=== PATIENT | male | born 1990 | race Caucasian/White ===

== ENCOUNTER 2017-10-19 13:38 | Emergency (ER) | payer OTHER ==
[~2017-10-19] VITALS: Ht 157.5 cm; Wt 87.5 kg
[2017-10-19 13:46] VITALS: Ht 157.5 cm; Wt 87.5 kg
[2017-10-19 16:59] VITALS: BP 133/58
== END 2017-10-19 16:59 | disposition home or self-care (01) ==
LOC: ED 13:38
DX: S80.01XA Contusion of right knee, initial encounter (principal); F31.9 Bipolar disorder, unspecified; F79 Unspecified intellectual disabilities; E66.9 Obesity, unspecified; Z68.35 Body mass index [BMI] 35.0-35.9, adult; W17.89XA Other fall from one level to another, initial encounter; Y93.89 Activity, other specified; Y92.89 Other specified places as the place of occurrence of the external cause; Y99.8 Other external cause status
CPT/HCPCS: 90715